=== PATIENT | female | born 1945 | race Caucasian/White ===

== ENCOUNTER → 2016-10-24 | Outpatient (CLI) | payer MEDICARE, BC ==
[~2016-10-24] MED LIST: ABILIFY2 MG PO; CELEXA 20MG20 MG/TAB PO; COZAAR; COZAAR 50MG50 MG/TAB; ESCITALOPRAM; HCTZ; LEVOTHYROXINE PO; LOPRESSOR 225 MG/TAB PO; NORVASC 10MG10 MG PO; PREMARIN0.625 MG PO; PRILOSEC 20MG20 MG PO; SINGULAIR 110 MG/TAB PO; SYNTHROID0.075 MG/T PO; TOPROL XL 25MG25 MG PO; VERAPAMIL; VERELAN240 MG PO; XANAX 0.5MG0.5 MG PO; ZYLOPRIM 300MG300 MG PO
== END ==
LOC: MC.RAD 10-17 11:00
DX: Z12.31 Encounter for screening mammogram for malignant neoplasm of breast (principal)

== ENCOUNTER 2016-11-05 19:06 | Emergency (ER) | payer MEDICARE, BC ==
[~2016-11-05] VITALS: Ht 157.5 cm; Wt 70.9 kg
[~2016-11-05 19:06] MED LIST changes: -LOPRESSOR 225 MG/TAB PO; -NORVASC 10MG10 MG PO; -SINGULAIR 110 MG/TAB PO; -TOPROL XL 25MG25 MG PO
[2016-11-05] MEDS ORDERED: CELEXA 20MG20 MG/TAB PO (19:14)
[2016-11-05] MEDS ORDERED: SINGULAIR 110 MG/TAB PO (19:14)
[2016-11-05] MEDS ORDERED: LOPRESSOR 225 MG/TAB PO (19:14)
[2016-11-05 19:31] VITALS: TEMP 98.7
[2016-11-05] MEDS ORDERED: XANAX 0.5MG0.5 MG PO (20:58)
[2016-11-05 21:07] VITALS: BP 165/76; PULSE 55
== END 2016-11-05 21:38 | disposition home or self-care (01) ==
LOC: COL.ER 19:06
DX: I10 Essential (primary) hypertension (principal); F41.9 Anxiety disorder, unspecified

== ENCOUNTER 2016-11-06 11:53 | Emergency (ER) | payer MEDICARE, BC ==
[~2016-11-06] VITALS: Ht 157.5 cm; Wt 70.9 kg
[~2016-11-06 11:53] MED LIST changes: +LOPRESSOR 225 MG/TAB PO; +SINGULAIR 110 MG/TAB PO
[2016-11-06 11:56] VITALS: TEMP 98.3
[2016-11-06 14:44] VITALS: BP 166/77; PULSE 58
== END 2016-11-06 14:49 | disposition home or self-care (01) ==
LOC: COL.ER 11:53
DX: I10 Essential (primary) hypertension (principal); R55 Syncope and collapse; R00.1 Bradycardia, unspecified; F41.9 Anxiety disorder, unspecified
CPT/HCPCS: J7030

== ENCOUNTER 2016-11-08 17:23 | Emergency (ER) | payer MEDICARE, BC ==
[~2016-11-08] VITALS: Ht 157.5 cm; Wt 70.9 kg
[2016-11-08 17:31] VITALS: TEMP 99
[2016-11-08] MEDS ORDERED: NORVASC 10MG10 MG PO (17:34)
[2016-11-08] MEDS ORDERED: TOPROL XL 25MG25 MG PO (17:34)
[2016-11-08 18:33] VITALS: BP 200/106; PULSE 70
== END 2016-11-08 18:43 | disposition home or self-care (01) ==
LOC: COL.ER 17:23
DX: I10 Essential (primary) hypertension (principal)

== ENCOUNTER → 2016-11-10 | Outpatient (CLI) | payer MEDICARE, BC ==
[~2016-11-10] MED LIST changes: +NORVASC 10MG10 MG PO; +TOPROL XL 25MG25 MG PO
== END ==
LOC: COL.CARD 13:24
DX: R09.89 Other specified symptoms and signs involving the circulatory and respiratory systems (principal)

== ENCOUNTER 2017-02-22 10:16 | Emergency (ER) | payer MEDICARE, BC ==
[~2017-02-22] VITALS: Ht 157.5 cm; Wt 72.7 kg
[2017-02-22 10:18] VITALS: TEMP 98.8
[2017-02-22 11:27] LABS: CALCIUM 9.3 mg/dL (8.4-10.2); CREATININE, serum 0.67 mg/dL (0.52-1.25); POTASSIUM 4.1 mmol/L (3.4-5.0)
[2017-02-22 11:51] VITALS: BP 191/118; PULSE 60
== END 2017-02-22 11:52 | disposition home or self-care (01) ==
LOC: COL.ER 10:16
PROVIDERS: Emergency Medicine
DX: I10 Essential (primary) hypertension (principal); F32.9 Major depressive disorder, single episode, unspecified; F41.9 Anxiety disorder, unspecified; R19.7 Diarrhea, unspecified; M10.9 Gout, unspecified

== ENCOUNTER → 2017-06-15 | Outpatient (CLI) | payer MEDICARE, BC | LOC: COL.LAB 10:12 | DX: Z01.89 Encounter for other specified special examinations (principal) ==

== ENCOUNTER → 2017-10-30 | Outpatient (CLI) | payer MEDICARE, BC | LOC: COL.VAS 11:44 | DX: M79.89 Other specified soft tissue disorders (principal) ==

== ENCOUNTER → 2017-12-10 | Outpatient (CLI) | payer MEDICARE, BC | LOC: MC.RAD 10:08 | DX: Z12.31 Encounter for screening mammogram for malignant neoplasm of breast (principal); I10 Essential (primary) hypertension; Z98.890 Other specified postprocedural states ==

== ENCOUNTER 2018-02-04 16:50 | Emergency (ER) | payer MEDICARE, BC ==
[~2018-02-04] VITALS: Ht 157.5 cm; Wt 75.0 kg
[~2018-02-04 16:50] MED LIST changes: +CELEXA40 MG PO; -TOPROL XL 25MG25 MG PO; +TOPROL XL100 MG PO
[2018-02-04 17:42] LABS: BASO % 0.3 % (0.0-2.0); EOS % 0.2 % (0-4.0); GRAN # 6.7 (1.4-6.5); HEMATOCRIT 39.1 % (37.0-47.0); HEMOGLOBIN 13.1 g/dl (12.5-16.0); LYMPH # 1.3 (1.2-3.4); LYMPH % 14.6 % (20.0-51.0); MEAN CELL VOLUME 88 fl (80.0-100.0); MEAN CORPUSCULAR HEMOGLOBIN 30 pg (27.0-31.0); MEAN CORPUSCULAR HGB CONC 34 g/dl (33.0-37.0); MONO # 0.9 (0.1-0.6); MONO % 10.3 % (1.7-9.3); PLATELET COUNT 289 K/mm3 (130-400); RED BLOOD COUNT 4.44 M/mm3 (4.10-5.30); REDCELL DISTRIBUTION WIDTH-CV 14.8 % (11.5-14.5)
[2018-02-04] MEDS ORDERED: NORVASC 10MG10 MG PO (17:44)
[2018-02-04] MEDS ORDERED: PRIL40 PO (17:44)
[2018-02-04] MEDS ORDERED: PROLIA60 MG/ML SQ (17:44)
[2018-02-04] MEDS ORDERED: IMODIUM 2MG CAPS2 MG PO (17:45)
[2018-02-04] MEDS ORDERED: MOTRIN 600600 MG/TAB PO (17:45)
[2018-02-04 17:48] LABS: INR 0.8 (0.8-3.0); PROTHROMBIN TIME 9.6 SECONDS (9.7-12.8)
[2018-02-04 17:56] LABS: ALANINE AMINOTRANSFERASE 38 U/L (9-52); ALKALINE PHOSPHATASE 80 U/L (50-136); ANION GAP 17 mmol/L (7-16); AST,SGOT 45 U/L (15-37); BILIRUBIN,TOTAL 0.5 mg/dL (0.0-1.0); BLOOD UREA NITROGEN 14 mg/dL (7-17); CALCIUM 8.8 mg/dL (8.4-10.2); CARBON DIOXIDE 22 mmol/L (22-30); CHLORIDE 104 mmol/L (98-107); CREATININE, serum 0.64 mg/dL (0.52-1.25); GLUCOSE 108 mg/dL (74-106); POTASSIUM 4.5 mmol/L (3.4-5.0); SODIUM 142 mmol/L (137-145); TOTAL PROTEIN 7.6 gm/dL (6.4-8.2)
[2018-02-04 18:06] LABS: TROPONIN-I < 0.012 ng/mL (0.000-0.034)
[2018-02-04] MEDS ORDERED: PLAVIX 75MG TAB75 MG PO (18:49)
[2018-02-04 19:29] VITALS: BP 135/65; PULSE 71; TEMP 98.2
[2018-02-04 19:55] LABS: CHOLESTEROL RISK RATIO 2.2
[2018-02-04 20:26] LABS: THYROID STIMULATING HORMONE 0.452 uIU/mL (0.465-4.680)
== END 2018-02-04 19:15 | disposition left against medical advice (07) ==
LOC: COL.ER 16:50
PROVIDERS: Emergency Medicine; Physician Assistant Medical
DX: I63.9 Cerebral infarction, unspecified (principal); R29.810 Facial weakness; R47.81 Slurred speech; I10 Essential (primary) hypertension; F41.9 Anxiety disorder, unspecified; Z88.2 Allergy status to sulfonamides

== ENCOUNTER 2018-10-25 09:02 | Inpatient (IN) | payer MEDICARE, BC ==
[~2018-10-25] VITALS: Ht 157.5 cm; Wt 77.7 kg
[~2018-10-25 09:02] MED LIST changes: +ASPIRIN E.C. 8181 MG PO; +DEPAKOTE ER 50500 MG PO; +IMODIUM 2MG CAPS2 MG PO; +LIPITOR 10MG10 MG PO; +MOTRIN 600600 MG/TAB PO; +PLAVIX 75MG TAB75 MG PO; +PRIL40 PO; +PROLIA60 MG/ML SQ
[2018-10-25 09:25] LABS: HEMATOCRIT 39.5 % (37.0-47.0); HEMOGLOBIN 13.1 g/dl (12.5-16.0); MEAN CELL VOLUME 85 fl (80.0-100.0); MEAN CORPUSCULAR HEMOGLOBIN 28 pg (27.0-31.0); MEAN CORPUSCULAR HGB CONC 33 g/dl (33.0-37.0); MEAN PLATELET VOLUME 9.7 fl (7.4-10.4); PLATELET COUNT 245 K/mm3 (130-400); RED BLOOD COUNT 4.67 M/mm3 (4.10-5.30); REDCELL DISTRIBUTION WIDTH-CV 13.5 % (11.5-14.5)
[2018-10-25 09:26] LABS: INR 0.9 (0.8-3.0); PROTHROMBIN TIME 10.5 SECONDS (9.7-12.8)
[2018-10-25 09:29] LABS: ALANINE AMINOTRANSFERASE 12 U/L (9-52); ALBUMIN 4.1 gm/dL (3.5-5.0); ALKALINE PHOSPHATASE 74 U/L (50-136); ANION GAP 10 mmol/L (7-16); AST,SGOT 19 U/L (15-37); BILIRUBIN,TOTAL 0.4 mg/dL (0.0-1.0); BLOOD UREA NITROGEN 15 mg/dL (7-17); CALCIUM 9.2 mg/dL (8.4-10.2); CARBON DIOXIDE 26 mmol/L (22-30); CHLORIDE 96 mmol/L (98-107); CREATININE, serum 0.72 mg/dL (0.52-1.25); GLUCOSE 114 mg/dL (74-106); LIPASE 147 U/L (23-300); POTASSIUM 4.4 mmol/L (3.4-5.0); SODIUM 131 mmol/L (137-145); TOTAL PROTEIN 7.1 gm/dL (6.4-8.2)
[2018-10-25 10:02] LABS: TROPONIN-I < 0.012 ng/mL (0.000-0.035)
[2018-10-25 10:08] LABS: BAND 22 % (0-10); LYMPHOCYTE 7 % (20.0-51.0); NEUTROPHILS 70 % (42.0-75.2); PLATELET ESTIMATE NORMAL (NORMAL)
--- NOTE | 2018-10-25 13:00 | NUR ---
pT arrived to unit, oriented to room. Lungs are wheezey throughout, oxygen applied at 2 L via NC, pt denies SOB. Independent to bathroom. Physical assessment completed. Med Rec completed. INT to RFA free of redness, swelling,. no further needs, call lgiht in reach
[2018-10-25] MEDS ORDERED: DEPAKOTE ER 50500 MG PO (13:42)
[2018-10-25] MEDS ORDERED: PRILOTC (13:46)
[2018-10-25 16:39] VITALS: BP 115/40; PULSE 72; TEMP 99.9
[2018-10-25 16:44] VITALS: BP 118/45; PULSE 70; TEMP 99.3
[2018-10-25 17:49] LABS: COLLECTION METHOD CLEAN CATCH
[2018-10-25 17:58] LABS: PH 6 (5-8); SQUAMOUS EPITHELIAL 0-2 /hpf; URINE APPEARANCE Clear; URINE BACTERIA Rare /hpf; URINE BILIRUBIN Negative (NEGATIVE); URINE BLOOD 1+ (NEGATIVE); URINE COLOR Yellow; URINE GLUCOSE Negative (NEGATIVE); URINE KETONE Negative (NEGATIVE); URINE LEUKOCYTE ESTERASE Negative (NEGATIVE); URINE NITRATE Negative (NEGATIVE); URINE PROTEIN(semi-quant) Negative (NEGATIVE); URINE RBC 0-2 /hpf; URINE UROBILINOGEN Negative (NEGATIVE)
--- NOTE | 2018-10-25 19:51 | NUR ---
Report given to Yazmin FINCH, pt denies need,s ate very little dinner, denies SOB, oxygen still applied at 2 L via NC, IV fluids infusing to site free of complications
[2018-10-25 21:03] VITALS: BP 113/40; PULSE 69; TEMP 99.6
--- NOTE | 2018-10-25 23:40 | NUR ---
Completed medications and assessment; PT tolerated all cares and medications well. No c/o pain or discomfort at time of assessment. A&Ox3, BS active x4, IND AMB in room; PT denies further needs at time of exit; NS running at 100ml/min per order to RW 20G IV; Call light placed within reach; Will continue to monitor. CDA
[2018-10-26] VITALS (7 sets, daily range): BP systolic 122–148; BP diastolic 47–88; PULSE 59–72; TEMP 97.9–99.5
--- NOTE | 2018-10-26 02:57 | NUR ---
PT resting well in supine position with HOB of 35; No visible concern of pain or discomfort; PT tolerating NS at 100ml/hr via RW 20G and O2 at 2L via NC; Call light within in reach; Will continue to monitor. CDA
[2018-10-26 06:04] LABS: BASO % 0.3 % (0.0-2.0); EOS % 0.1 % (0-4.0); GRAN # 11.3 (1.4-6.5); GRAN % 81.6 % (42.2-75.2); LYMPH # 1.1 (1.2-3.4); LYMPH % 8.1 % (20.0-51.0); MEAN CELL VOLUME 87 fl (80.0-100.0); MEAN CORPUSCULAR HGB CONC 33 g/dl (33.0-37.0); MONO # 1.3 (0.1-0.6); MONO % 9.3 % (1.7-9.3); PLATELET COUNT 171 K/mm3 (130-400); RED BLOOD COUNT 3.44 M/mm3 (4.10-5.30); REDCELL DISTRIBUTION WIDTH-CV 14.3 % (11.5-14.5)
[2018-10-26 06:08] LABS: HEMATOCRIT 29.8 % (37.0-47.0); HEMOGLOBIN 9.7 g/dl (12.5-16.0); MEAN CORPUSCULAR HEMOGLOBIN 28 pg (27.0-31.0)
--- NOTE | 2018-10-26 06:23 | NUR ---
Lab called to inform this nurse about significant change in HGB; 10/25/18 HGB was 13.1; 08/25/19 HGB is 9.7; Will pass on during report as hospitalist on-call is not answering at this time. CDA
[2018-10-26 06:25] LABS: CALCIUM 7.7 mg/dL (8.4-10.2); CREATININE, serum 0.58 mg/dL (0.52-1.25)
--- NOTE | 2018-10-26 06:42 | NUR ---
Report given to JOSETTE Munoz. CDA
--- NOTE | 2018-10-26 07:00 | NUR ---
Reported on to JOSETTE Munoz.
--- NOTE | 2018-10-26 07:30 | NUR ---
VSS. Pt rested well and is feeling better with more energy. O2 on at 2L per NC, lungs clear to auscultation. IV patent NS @100 ml/hr. Denies c/o pain.
--- NOTE | 2018-10-26 09:00 | NUR ---
Educated Pt on DVT protocol and heparin.
--- NOTE | 2018-10-26 10:17 | NUR ---
Initial visit; Patient thanked Probation Officer for looking in on her and offering God's blessings and to keep her in Probation Officer's prayers.
--- NOTE | 2018-10-26 11:00 | NUR ---
VSS. Pt resting in bed. No verbal complaints at this time. Call light within reach. O2 on @ 2L per NC. Assessment unchanged.
--- NOTE | 2018-10-26 14:44 | NUR ---
SW attended clinical rounding and met with patient to discuss dicharge planning. Patient lives independently in [facility] but reports she has a good support system. Her PCP is Dr Donaldson and he obtains his medications from [facility]. Patients DPOA is on EMR. There are no identified dc needs however sw will continue to follow.
--- NOTE | 2018-10-26 18:27 | NUR ---
Patient resting in bed, head elevated. Pump cleared. Did ask question regarding IV medications and was educated on situation. Denies pain. Call light is within reach.
--- NOTE | 2018-10-26 20:35 | NUR ---
Pt resting comfortably in bed, shift assessments complete, left Pt bed in lowest position, call light in reach.
[2018-10-27 04:12] VITALS: BP 145/68; PULSE 64; TEMP 98.6
--- NOTE | 2018-10-27 07:00 | NUR ---
Reported on to JOSETTE Gardiner.
--- NOTE | 2018-10-27 07:30 | NUR ---
Pt AAOx4, VSS, no complaints of pain at rest. Does state 3/10 pain with deep inspiration. Ambulated independently from bed to chair without difficulty with some dyspnea that resolved with rest. Pt expreses readiness to discharge, her plan is to transition to a [employer] appartent and sell home she has lived in for 33 years with her late . Call light within reach
[2018-10-27 07:40] VITALS: BP 163/65; PULSE 72; TEMP 98.9
--- NOTE | 2018-10-27 08:00 | NUR ---
Assessment complete.VSS. 02 on @ 1L/NC. Breath sounds regular and clear. Non productive cough noted. No SOB noted @ rest. Rt wrist IV site patent NS @ 60 ml/hr. Pt denies c/o pain. Call light in reach.
[2018-10-27 09:10] LABS: BASO % 0.3 % (0.0-2.0); EOS # 0.1 (0.0-0.7); EOS % 0.9 % (0-4.0); GRAN # 8.8 (1.4-6.5); LYMPH # 0.7 (1.2-3.4); LYMPH % 6.8 % (20.0-51.0); MEAN CELL VOLUME 89 fl (80.0-100.0); MEAN CORPUSCULAR HEMOGLOBIN 28 pg (27.0-31.0); MEAN CORPUSCULAR HGB CONC 31 g/dl (33.0-37.0); MEAN PLATELET VOLUME 9.6 fl (7.4-10.4); MONO # 0.7 (0.1-0.6); MONO % 6.5 % (1.7-9.3); PLATELET COUNT 200 K/mm3 (130-400); RED BLOOD COUNT 3.94 M/mm3 (4.10-5.30); REDCELL DISTRIBUTION WIDTH-CV 13.9 % (11.5-14.5)
--- NOTE | 2018-10-27 09:30 | NUR ---
Pt resting in chair. Stated "Feeling good to be out of bed" Dyspnea upon exertion but subsided after rest. Call light within reach.
--- NOTE | 2018-10-27 10:15 | NUR ---
RN Student assessment altered, documented assessment accurate
--- NOTE | 2018-10-27 11:35 | NUR ---
Pt resting in chair. Assessment unchanged. No acute concerns at this time.
[2018-10-27 11:46] VITALS: BP 151/59; PULSE 66; TEMP 98.8
[2018-10-27 15:51] VITALS: BP 149/49; PULSE 72; TEMP 97.6
--- NOTE | 2018-10-27 17:32 | NUR ---
Right Subclavian Central Line Catheter Removed according to policy. Catheter removed without difficulty, entire catheter remained intact. All questions answered after educational material covered. Prescriptions handed over to pt. DARYL Berry transported pt to private vehicle driven by friend of pt. Pt edcuated to keep central line insertion site dressing clean and dry for 3 days, and to call physician if site becomes red, sore, tender, pus/drainage, or fever>100.4.
[2018-10-27 20:34] VITALS: BP 149/56; PULSE 68; TEMP 98.5
--- NOTE | 2018-10-27 23:10 | NUR ---
Completed assessment and medication administration; PT tolerated all cares well; PT verbalozed concerns about discharge in AM; PT requesting midmorning or afternoon; discharge. PT A&Ox3, BS active x4, LCTA throughout with DB. PT denied pain or discomfort at time of assessment; No further needs or concerns at time of exit; PT assisted to a comfort position in bed with call light in reach; Will continue to [facility]. CDA
[2018-10-27 23:38] VITALS: BP 143/53; PULSE 67; TEMP 98.7
[2018-10-29] MEDS ORDERED: OMNICEF 300MG300 MG PO (09:13)
[2018-10-29] MEDS ORDERED: PROAIR HFA0.09 MG/AC IH (09:14)
[2018-10-29] MEDS ORDERED: AEROCHAMBER Z-S1 DEV IH (09:25)
--- NOTE | 2018-10-29 13:59 | NUR ---
SW and KSENIA student attended clinical rounding. Patient is dc home today with no unmet needs. She feels she does not need any outpatient therapy. SW student presented IM and verbally discussed the contents. Patient was agreeable and signed the form. Original in chart and copy provided to patient.
[2018-10-29 14:35] LABS: BASO % 0.8 % (0.0-2.0); EOS # 0.1 (0.0-0.7); EOS % 2.2 % (0-4.0); GRAN # 3.1 (1.4-6.5); GRAN % 62.2 % (42.2-75.2); HEMATOCRIT 34.7 % (37.0-47.0); HEMOGLOBIN 11.4 g/dl (12.5-16.0); LYMPH # 1.1 (1.2-3.4); LYMPH % 21.1 % (20.0-51.0); MEAN CELL VOLUME 85 fl (80.0-100.0); MEAN CORPUSCULAR HEMOGLOBIN 28 pg (27.0-31.0); MEAN CORPUSCULAR HGB CONC 33 g/dl (33.0-37.0); MEAN PLATELET VOLUME 9.7 fl (7.4-10.4); MONO # 0.6 (0.1-0.6); MONO % 12.7 % (1.7-9.3); PLATELET COUNT 237 K/mm3 (130-400); RED BLOOD COUNT 4.07 M/mm3 (4.10-5.30); REDCELL DISTRIBUTION WIDTH-CV 13.8 % (11.5-14.5)
[2018-10-29 14:56] LABS: ALBUMIN 3.7 gm/dL (3.5-5.0); BILIRUBIN,TOTAL 0.2 mg/dL (0.0-1.0); CALCIUM 8.8 mg/dL (8.4-10.2); CREATININE, serum 0.6 mg/dL (0.52-1.25); POTASSIUM 3.9 mmol/L (3.4-5.0); TOTAL PROTEIN 6.6 gm/dL (6.4-8.2)
== END 2018-10-29 13:40 | disposition home or self-care (01) | DRG 871 ==
LOC: COL.ER 09:02 → MEDICAL 10:02
PROVIDERS: Emergency Medicine; Physician Assistant; ADMIT Hospitalist
DX: A41.9 Sepsis, unspecified organism (principal); J18.9 Pneumonia, unspecified organism; J96.01 Acute respiratory failure with hypoxia; I10 Essential (primary) hypertension; E78.5 Hyperlipidemia, unspecified; G40.909 Epilepsy, unspecified, not intractable, without status epilepticus; F43.10 Post-traumatic stress disorder, unspecified; E03.9 Hypothyroidism, unspecified; J45.909 Unspecified asthma, uncomplicated; K58.0 Irritable bowel syndrome with diarrhea; Z09 Encounter for follow-up examination after completed treatment for conditions other than malignant neoplasm; Z88.1 Allergy status to other antibiotic agents; Z88.2 Allergy status to sulfonamides; Z88.8 Allergy status to other drugs, medicaments and biological substances
CPT/HCPCS: OP; 99222-AI; 99232-AI; 99233-AI; 99239; A4216; G0378; J0360; J0456; J0696; J1644; J2405; J7030; J7050

== ENCOUNTER → 2018-12-23 | Outpatient (CLI) | payer MEDICARE, BC ==
[~2018-12-23] MED LIST changes: +AEROCHAMBER Z-S1 DEV IH; +OMNICEF 300MG300 MG PO; +PRILOTC; +PROAIR HFA0.09 MG/AC IH
== END ==
LOC: COL.VAS 08:55
DX: R60.0 Localized edema (principal)

== ENCOUNTER → 2019-02-23 | Outpatient (CLI) | payer MEDICARE, BC | LOC: MC.RAD 09:47 | DX: Z12.31 Encounter for screening mammogram for malignant neoplasm of breast (principal); Z98.890 Other specified postprocedural states ==

== ENCOUNTER 2019-03-30 15:51 | Outpatient (CLI) | payer MEDICARE, BC ==
[~2019-03-30] VITALS: Ht 157.5 cm; Wt 81.4 kg
[2019-03-30 16:07] VITALS: BP 148/59; PULSE 70; TEMP 98.2
== END 2019-03-30 16:09 | disposition home or self-care (01) ==
LOC: EUO 15:51
DX: M81.0 Age-related osteoporosis without current pathological fracture (principal)
CPT/HCPCS: J0897

== ENCOUNTER 2019-08-02 10:51 | Emergency (ER) | payer MEDICARE, BC ==
[~2019-08-02] VITALS: Ht 157.5 cm; Wt 75.0 kg
[2019-08-02 11:21] VITALS: TEMP 98.2
[2019-08-02 12:13] LABS: BASO % 0.4 % (0.0-2.0); GRAN % 83.7 % (42.2-75.2); HEMATOCRIT 40.5 % (37.0-47.0); HEMOGLOBIN 13.8 g/dl (12.5-16.0); LYMPH # 0.6 (1.2-3.4); LYMPH % 7.3 % (20.0-51.0); MEAN CELL VOLUME 93 fl (80.0-100.0); MEAN CORPUSCULAR HEMOGLOBIN 32 pg (27.0-31.0); MEAN CORPUSCULAR HGB CONC 34 g/dl (33.0-37.0); MEAN PLATELET VOLUME 9.5 fl (7.4-10.4); MONO # 0.7 (0.1-0.6); MONO % 8.4 % (1.7-9.3); PLATELET COUNT 190 K/mm3 (130-400); RED BLOOD COUNT 4.35 M/mm3 (4.10-5.30); REDCELL DISTRIBUTION WIDTH-CV 14.4 % (11.5-14.5)
[2019-08-02 12:31] LABS: ALANINE AMINOTRANSFERASE 53 U/L (9-52); ALBUMIN 4.5 gm/dL (3.5-5.0); ALKALINE PHOSPHATASE 92 U/L (50-136); ANION GAP 11 mmol/L (7-16); AST,SGOT 43 U/L (15-37); BILIRUBIN,TOTAL 0.7 mg/dL (0.0-1.0); BLOOD UREA NITROGEN 13 mg/dL (7-17); CALCIUM 9.1 mg/dL (8.4-10.2); CARBON DIOXIDE 27 mmol/L (22-30); CHLORIDE 100 mmol/L (98-107); CREATININE, serum 0.52 (0.52-1.25); GLUCOSE 112 mg/dL (74-106); LIPASE 76 U/L (23-300); POTASSIUM 3.5 mmol/L (3.4-5.0); SODIUM 138 mmol/L (137-145); TOTAL PROTEIN 7.6 gm/dL (6.4-8.2)
[2019-08-02 12:32] LABS: ALCOHOL(ethanol),MEDICAL < 10 mg/dL; C-REACTIVE PROTEIN < 0.5 mg/dL (0.0-0.9)
[2019-08-02] MEDS ORDERED: ATIVAN 1MG T1 MG/TAB PO (13:05)
[2019-08-02 14:25] LABS: COLLECTION METHOD CLEAN CATCH
--- NOTE | 2019-08-02 14:36 | NUR ---
Head Control Clerk received consult from ER and met with patient. Patient lives at [facility] since about November. Patient states she drinks daily and has about 3 drinks per day although she did drink more than her usual this weekend. Patient states her last drink was yesterday. Patient also reports she was diagnosed with PTSD after the traumatic loss of her nine years ago. Patient not interested in inpatient treatment for alcohol at this time. Patient reports she has an appointment in August with psychologist Dr. Carole Mcgill and gave permission to contact Dr. Mcgill to inquire about an appointment sooner than August. SW contacted Dr. Mcgill who advised she is completely booked until patient appointment but would call patient with any cancellations. SW provided update to patient who states she does not want to explore any other providers and would prefer to keep set appointment with Dr. Mcgill. KSENIA provided update to patient RN, Leyda who advised patient also has a follow up appointment with her primary care physician tomorrow. No additional concerns at this time.
[2019-08-02 14:44] LABS: MUCOUS Present /lpf; PH 9 (5-8); SQUAMOUS EPITHELIAL None Seen /hpf; URINE APPEARANCE Clear; URINE BACTERIA None Seen /hpf; URINE BILIRUBIN Negative (NEGATIVE); URINE BLOOD Negative (NEGATIVE); URINE COLOR Straw; URINE GLUCOSE Negative (NEGATIVE); URINE KETONE Negative (NEGATIVE); URINE LEUKOCYTE ESTERASE Negative (NEGATIVE); URINE NITRATE Negative (NEGATIVE); URINE PROTEIN(semi-quant) Negative (NEGATIVE); URINE RBC 0-2 /hpf; URINE UROBILINOGEN Negative (NEGATIVE)
[2019-08-02 14:48] VITALS: BP 169/87; PULSE 72
== END 2019-08-02 14:48 | disposition home or self-care (01) ==
LOC: COL.ER 10:51
PROVIDERS: Family Medicine
DX: F10.239 Alcohol dependence with withdrawal, unspecified (principal); I10 Essential (primary) hypertension
CPT/HCPCS: J2060; J2405; J7030

== ENCOUNTER 2019-10-18 14:16 | Outpatient (CLI) | payer MEDICARE, BC ==
[~2019-10-18] VITALS: Ht 157.5 cm; Wt 75.0 kg
[~2019-10-18 14:16] MED LIST changes: +ATIVAN 1MG T1 MG/TAB PO
[2019-10-18] MEDS ORDERED: LIPITOR 10MG10 MG PO (15:30)
[2019-10-18] MEDS ORDERED: CARDIZEM SR 60M60 MG PO (15:32)
[2019-10-18] MEDS ORDERED: XANAX 0.5MG0.5 MG PO (15:32)
[2019-10-18 15:33] VITALS: BP 147/75; PULSE 64; TEMP 98.4
[2019-10-18] MEDS ORDERED: ABILIFY2 MG PO (15:33)
== END 2019-10-18 15:35 | disposition home or self-care (01) ==
LOC: EUO 14:16
DX: M81.0 Age-related osteoporosis without current pathological fracture (principal)
CPT/HCPCS: J0897

== ENCOUNTER → 2020-04-03 | Outpatient (CLI) | payer MEDICARE, BC ==
[~2020-04-03] MED LIST changes: +CARDIZEM SR 60M60 MG PO
== END ==
LOC: MC.RAD 13:59
DX: Z12.31 Encounter for screening mammogram for malignant neoplasm of breast (principal); Z98.82 Breast implant status

== ENCOUNTER 2021-04-05 08:12 | Day surgery (SDC) | payer MEDICARE, BC ==
[~2021-04-05] VITALS: Ht 154.9 cm; Wt 81.5 kg
[~2021-04-05 08:12] MED LIST changes: +HYZAAR 50-12.1 UDTAB; +NORVASC 5MG5 MG/TAB PO
[2021-04-05] MEDS ORDERED: COZAAR100 MG PO (09:07)
[2021-04-05] MEDS ORDERED: MIRTAZAPINE7.5 MG PO (09:13)
[2021-04-05] MEDS ORDERED: ALDACTONE 25MG25 M1 PO (09:15)
[2021-04-05] MEDS ORDERED: PRILOTC (09:17)
[2021-04-05] MEDS ORDERED: XANAX 0.5MG0.5 MG PO (09:19)
[2021-04-05 09:20] VITALS: BP 146/84; PULSE 84; TEMP 99.2
[2021-04-05] MEDS ORDERED: LASIX 40MG TABL40 MG PO (09:21)
[2021-04-05 10:43] VITALS: BP 146/84; PULSE 79; TEMP 98.2
--- NOTE | 2021-04-05 10:43 | NUR ---
Patient returned to [facility] [address] via cart, alert and oriented. Postop vital signs started. Provided water and crackers. Will continue to monitor.
--- NOTE | 2021-04-05 10:50 | NUR ---
Dr. stafford to speak with patient.
[2021-04-05 10:58] VITALS: BP 148/75; PULSE 68
--- NOTE | 2021-04-05 10:58 | NUR ---
Patient sitting up in chair, alert and oriented. Tolerating food and drink well. Vital signs stable. Will continue to monitor.
[2021-04-05 11:13] VITALS: BP 161/74; PULSE 66
--- NOTE | 2021-04-05 11:13 | NUR ---
Patient sitting up in chair, alert and oriented. Denies discomfort. Blood pressure is high. Patient reports this is normal and that she did not take her BP medication this morning and is going to take it as soon as discharged home. Requested to be discharged. Reviewed d/c instructions and education material, patient verbalized understanding. D/C IV with no complications. Instructed to dress and open door when ready for transport.
--- NOTE | 2021-04-05 11:22 | NUR ---
Patient transfered via wheel chair to personal vehicle by staff accompanied by friend Marianela.
== END 2021-04-05 11:22 | disposition home or self-care (01) ==
LOC: SDCO 08:12
DX: K92.1 Melena (principal); K58.0 Irritable bowel syndrome with diarrhea; K64.8 Other hemorrhoids; K64.1 Second degree hemorrhoids; K21.9 Gastro-esophageal reflux disease without esophagitis; I10 Essential (primary) hypertension; E78.5 Hyperlipidemia, unspecified; E03.9 Hypothyroidism, unspecified; G40.909 Epilepsy, unspecified, not intractable, without status epilepticus; R15.2 Fecal urgency; M79.10 Myalgia, unspecified site; R53.81 Other malaise; F32.9 Major depressive disorder, single episode, unspecified; F41.9 Anxiety disorder, unspecified; F43.10 Post-traumatic stress disorder, unspecified; Z86.010 Personal history of colon polyps; Z79.899 Other long term (current) drug therapy; Z79.890 Hormone replacement therapy; Z80.0 Family history of malignant neoplasm of digestive organs
CPT/HCPCS: J2704; J7120

== ENCOUNTER → 2021-06-13 | Outpatient (CLI) | payer MEDICARE, BC ==
[~2021-06-13] MED LIST changes: +ALDACTONE 25MG25 M1 PO; +COZAAR100 MG PO; +LASIX 40MG TABL40 MG PO; +MIRTAZAPINE7.5 MG PO; +ZITHROMAX Z PA250 MG PO
== END ==
LOC: MC.RAD 04-22 15:00
DX: Z12.31 Encounter for screening mammogram for malignant neoplasm of breast (principal)

== ENCOUNTER 2021-06-30 09:14 | Emergency (ER) | payer MEDICARE, BC ==
[~2021-06-30] VITALS: Ht 154.9 cm; Wt 79.1 kg
[~2021-06-30 09:14] MED LIST changes: -ZITHROMAX Z PA250 MG PO
[2021-06-30 09:26] VITALS: TEMP 99.3
[2021-06-30 10:19] LABS: BASO % 0.7 % (0.0-2.0); EOS % 0.5 % (0-4.0); GRAN # 4.3 K/mm3 (1.4-6.5); GRAN % 71.7 % (42.2-75.2); HEMATOCRIT 37.4 % (37.0-47.0); HEMOGLOBIN 13.2 g/dl (12.5-16.0); LYMPH # 0.7 K/mm3 (1.2-3.4); LYMPH % 12.3 % (20.0-51.0); MEAN CELL VOLUME 93 fl (80.0-100.0); MEAN CORPUSCULAR HEMOGLOBIN 33 pg (27.0-31.0); MEAN CORPUSCULAR HGB CONC 35 g/dl (33.0-37.0); MONO # 0.9 K/mm3 (0.1-0.6); MONO % 14.5 % (1.7-9.3); PLATELET COUNT 233 K/mm3 (130-400); RED BLOOD COUNT 4.03 M/mm3 (4.10-5.30)
[2021-06-30 10:38] LABS: ALBUMIN 3.9 gm/dL (3.4-4.8); BILIRUBIN,TOTAL 0.6 mg/dL (0.2-1.2); C-REACTIVE PROTEIN 0.11 mg/dL (0.00-0.50); CALCIUM 8.8 mg/dL (8.4-10.2); CREATININE, serum 0.76 mg/dL (0.57-1.11); POTASSIUM 3.8 mmol/L (3.5-4.5); TOTAL PROTEIN 6.8 gm/dL (6.2-8.1)
[2021-06-30 11:50] LABS: COLLECTION METHOD CLEAN CATCH
[2021-06-30 12:01] LABS: PH 6 (5-8); SQUAMOUS EPITHELIAL 0-2 /hpf; URINE APPEARANCE Clear; URINE BACTERIA Rare /hpf; URINE BILIRUBIN Negative (NEGATIVE); URINE BLOOD Negative (NEGATIVE); URINE COLOR Straw; URINE GLUCOSE Negative (NEGATIVE); URINE KETONE 1+ (NEGATIVE); URINE LEUKOCYTE ESTERASE Negative (NEGATIVE); URINE NITRATE Negative (NEGATIVE); URINE PROTEIN(semi-quant) Negative (NEGATIVE); URINE RBC None Seen /hpf; URINE UROBILINOGEN Negative (NEGATIVE)
[2021-06-30] MEDS ORDERED: ZITHROMAX Z PA250 MG PO (12:19)
[2021-06-30 12:42] VITALS: BP 169/84; PULSE 79
== END 2021-06-30 12:47 | disposition home or self-care (01) ==
LOC: COL.ER 09:14
PROVIDERS: Family Medicine
DX: J40 Bronchitis, not specified as acute or chronic (principal); R19.7 Diarrhea, unspecified; I10 Essential (primary) hypertension; Z20.822 Contact with and (suspected) exposure to COVID-19; Z88.1 Allergy status to other antibiotic agents; Z88.2 Allergy status to sulfonamides; Z79.899 Other long term (current) drug therapy
CPT/HCPCS: J2405; J7030; J7120

== ENCOUNTER 2021-11-08 17:18 | Inpatient (IN) | payer MEDICARE, BC ==
[~2021-11-08] VITALS: Ht 154.9 cm; Wt 75.4 kg
[~2021-11-08 17:18] MED LIST changes: -MOTRIN 200200 MG/TAB PO; -PERIDEX (CHLOR480 ML MM; -PROVENTIL0.09 MG/A1 IH; -ZYRTEC 10MG10 MG PO
[2021-11-08 18:25] LABS: COLLECTION METHOD CLEAN CATCH
[2021-11-08 18:31] LABS: MUCOUS Present (NOT PRESENT); PH 5 (5-8); SQUAMOUS EPITHELIAL 0-2 /hpf (0-10); URINE APPEARANCE Clear (CLEAR/HAZY); URINE BACTERIA Rare /hpf (NONE SEEN); URINE BILIRUBIN Negative (NEGATIVE); URINE BLOOD Negative (NEGATIVE); URINE COLOR Straw (YELLOW); URINE GLUCOSE Negative (NEGATIVE); URINE KETONE Negative (NEGATIVE); URINE LEUKOCYTE ESTERASE Negative (NEGATIVE); URINE NITRATE Negative (NEGATIVE); URINE PROTEIN(semi-quant) Negative (NEGATIVE); URINE RBC None Seen /hpf (0-2); URINE UROBILINOGEN Negative (NEGATIVE)
[2021-11-08] MEDS ORDERED: SINGULAIR 110 MG/TAB PO (23:26)
[2021-11-08] MEDS ORDERED: COZAAR100 MG PO (23:26)
[2021-11-08] MEDS ORDERED: ZYRTEC 10MG10 MG PO (23:32)
[2021-11-08] MEDS ORDERED: MOTRIN 200200 MG/TAB PO (23:33)
[2021-11-08] MEDS ORDERED: PROVENTIL0.09 MG/A1 IH (23:33)
[2021-11-08] MEDS ORDERED: PERIDEX (CHLOR480 ML MM (23:34)
[2021-11-08 23:59] VITALS: BP 132/60; PULSE 58; TEMP 97.8
--- NOTE | 2021-11-09 00:41 | NUR ---
Patient arrived to medical unit from ER at approximately 2330. Alert and oriented x 4, and able to make needs known. Denies pain and discomfort. Peripheral INT to right AC. Denies SOB and dyspnea. LS CTA. HRR. Capillary refill less than 3 seconds. Non-tenting skin turgor. BSAx4. Abdomen soft and non-tender. Voices no questions, needs, or concerns at this time. Patient encouraged to drink gatorade. In bed with call light within reach. Bed alarm on for safety.
[2021-11-09 00:43] LABS: CALCIUM 8.8 mg/dL (8.4-10.2); CREATININE, serum 0.76 mg/dL (0.57-1.11); POTASSIUM 4.1 mmol/L (3.5-4.5)
[2021-11-09 04:18] VITALS: BP 150/64; PULSE 66; TEMP 98.2
--- NOTE | 2021-11-09 05:12 | NUR ---
Most recent NA 124. Denies having pain and discomfort. Voices no questions, needs, or concerns. In bed with call light within reach.
[2021-11-09 06:38] LABS: BASO # 0.1 K/mm3 (0.0-0.2); BASO % 0.9 % (0.0-2.0); EOS # 0.1 K/mm3 (0.0-0.7); EOS % 1.6 % (0.0-4.0); GRAN # 3.7 K/mm3 (1.4-6.5); GRAN % 64.7 % (42.2-75.2); HEMOGLOBIN 12.4 g/dl (12.5-16.0); LYMPH # 0.9 K/mm3 (1.2-3.4); LYMPH % 16.5 % (20.0-51.0); MEAN CELL VOLUME 92 fl (80.0-100.0); MEAN CORPUSCULAR HEMOGLOBIN 33 pg (27-31); MEAN CORPUSCULAR HGB CONC 35 g/dl (33.0-37.0); MONO # 0.9 K/mm3 (0.1-0.6); MONO % 15.8 % (1.7-9.3); PLATELET COUNT 262 K/mm3 (130-400); RED BLOOD COUNT 3.82 M/mm3 (4.10-5.30); REDCELL DISTRIBUTION WIDTH-CV 11.7 % (11.5-14.5)
[2021-11-09 06:53] LABS: CALCIUM 8.8 mg/dL (8.4-10.2); CREATININE, serum 0.74 mg/dL (0.57-1.11); POTASSIUM 4.9 mmol/L (3.5-4.5)
[2021-11-09 07:37] VITALS: BP 132/62; PULSE 71; TEMP 98.7
--- NOTE | 2021-11-09 09:54 | NUR ---
Assessment completed, alert/oriented, vital signs stable, denies pain or discomfort, Na level up to 129 this morning, 1.75L.per day fluid restrict and patient is having gatorade this morning and verbalizes understanding of fluid restriction, heart RRR/distal pulses are palpable, some 1+ edema to BLE and she reports this is baseline for her, no resp.difficulty noted and lungs are CTA throughout, patient unsure exactly why they admitted her to the hospital as she states she "feels fine", she is able to ambulate in the room independently, taking PO intake fine, morning meds given and she has had breafkast, denies needs at this time, will continnue to monitor
[2021-11-09 11:26] VITALS: BP 105/43; PULSE 69; TEMP 98.8
[2021-11-09 11:34] LABS: CALCIUM 9.8 mg/dL (8.4-10.2); CREATININE, serum 0.77 mg/dL (0.57-1.11); POTASSIUM 4.6 mmol/L (3.5-4.5)
--- NOTE | 2021-11-09 11:39 | NUR ---
SW met with patient to complete intake. Patient states that she lives at [facility] in [facility]. Patient states that her local point of contact is Emmy Jama [phone] and her DPOA/HC is Kal Sanchez, and Delia Sena. Patient provides that her PCP is Dr. Varela, and pharmacy is [facility]. Patient states that she does not utilize any DME and is independent with [facility]. Plan is to return to her apartment at [facility]. KSENIA will continue to follow. DC plan: return to [place] at [facility]
[2021-11-09 15:19] VITALS: BP 127/53; PULSE 70; TEMP 99.2
--- NOTE | 2021-11-09 17:38 | NUR ---
Discharge instructions reveiwed with the patient, instructed to follow up with PCP in 1 week, instructed to increase protein intake and decrease ETOH consumption, instructed to hold Spirnolactone for now and take other meds as prescribed previously, IV removed, she is ambulatory and leaving with a friend, I personally escorted her out the door
== END 2021-11-09 17:39 | disposition home or self-care (01) | DRG 641 ==
LOC: COL.ER 17:18 → MEDICAL 21:22
PROVIDERS: Physician Assistant
DX: E87.1 Hypo-osmolality and hyponatremia (principal); I10 Essential (primary) hypertension; E78.5 Hyperlipidemia, unspecified; G40.909 Epilepsy, unspecified, not intractable, without status epilepticus; F43.10 Post-traumatic stress disorder, unspecified; E03.8 Other specified hypothyroidism; G47.00 Insomnia, unspecified; F10.10 Alcohol abuse, uncomplicated; E87.5 Hyperkalemia; Z23 Encounter for immunization
CPT/HCPCS: 99223-AI; 99232-AI; 99239; J1644; J7030

== ENCOUNTER → 2021-11-08 | Outpatient (CLI) | payer MEDICARE, BC ==
[~2021-11-08] MED LIST changes: +MOTRIN 200200 MG/TAB PO; +PERIDEX (CHLOR480 ML MM; +PRILOTC PO; +PROVENTIL0.09 MG/A1 IH; +ZITHROMAX Z PA250 MG PO; +ZYRTEC 10MG10 MG PO
[2021-11-08 16:00] LABS: ALBUMIN 3.7 gm/dL (3.4-4.8); BILIRUBIN,TOTAL 0.5 mg/dL (0.2-1.2); C-REACTIVE PROTEIN 0.5 mg/dL (0.00-0.50); CALCIUM 8.5 mg/dL (8.4-10.2); CREATININE, serum 0.94 mg/dL (0.57-1.11); POTASSIUM 5.1 mmol/L (3.5-4.5); TOTAL PROTEIN 6.8 gm/dL (6.2-8.1)
[2021-11-08 16:02] LABS: BASO # 0.1 K/mm3 (0.0-0.2); BASO % 0.8 % (0.0-2.0); EOS # 0.1 K/mm3 (0.0-0.7); EOS % 0.9 % (0.0-4.0); GRAN # 6.5 K/mm3 (1.4-6.5); GRAN % 71.9 % (42.2-75.2); HEMOGLOBIN 12.3 g/dl (12.5-16.0); LYMPH # 1.2 K/mm3 (1.2-3.4); LYMPH % 13.6 % (20.0-51.0); MEAN CELL VOLUME 94 fl (80.0-100.0); MEAN CORPUSCULAR HEMOGLOBIN 33 pg (27-31); MEAN CORPUSCULAR HGB CONC 35 g/dl (33.0-37.0); MEAN PLATELET VOLUME 10.1 fl (7.4-10.4); MONO # 1.1 K/mm3 (0.1-0.6); MONO % 12.4 % (1.7-9.3); PLATELET COUNT 261 K/mm3 (130-400); RED BLOOD COUNT 3.76 M/mm3 (4.10-5.30); REDCELL DISTRIBUTION WIDTH-CV 11.9 % (11.5-14.5)
[2021-11-08 16:05] LABS: ERYTHROCYTE SEDIMENTATION RATE 25 mm/hr (0-30); HEMATOCRIT 35.5 % (37.0-47.0)
== END ==
LOC: ZCOL.LAB 14:56
PROVIDERS: Nurse Practitioner Family
DX: M87.180 Osteonecrosis due to drugs, jaw (principal); E87.1 Hypo-osmolality and hyponatremia

== ENCOUNTER 2022-05-23 18:43 | Emergency (ER) | payer MEDICARE, BC ==
[~2022-05-23] VITALS: Ht 154.9 cm; Wt 72.7 kg
[~2022-05-23 18:43] MED LIST changes: +MOTRIN 200200 MG/TAB PO; +PERIDEX (CHLOR480 ML MM; +PROVENTIL0.09 MG/A1 IH; +ZYRTEC 10MG10 MG PO
[2022-05-23] MEDS ORDERED: AMOXICILLIN 50500 MG PO (19:44)
[2022-05-23 19:51] VITALS: BP 145/78; PULSE 76
== END 2022-05-23 19:51 | disposition home or self-care (01) ==
LOC: COL.ER 18:43
DX: S09.90XA Unspecified injury of head, initial encounter (principal); S01.81XA Laceration without foreign body of other part of head, initial encounter; S01.512A Laceration without foreign body of oral cavity, initial encounter; Z28.310 Unvaccinated for COVID-19; Z88.0 Allergy status to penicillin; Z88.2 Allergy status to sulfonamides; W18.30XA Fall on same level, unspecified, initial encounter; Y92.128 Other place in nursing home as the place of occurrence of the external cause; Y93.01 Activity, walking, marching and hiking

== ENCOUNTER → 2022-06-24 | Outpatient (CLI) | payer MEDICARE, BC ==
[~2022-06-24] MED LIST changes: +AMOXICILLIN 50500 MG PO
== END ==
LOC: MC.RAD 13:49
DX: Z12.31 Encounter for screening mammogram for malignant neoplasm of breast (principal)